=== PATIENT | female | born 1945 | race Two or more races ===

== ENCOUNTER 2017-01-05 19:04 | Emergency (ER) | payer MEDICARE, BC ==
[~2017-01-05] VITALS: Ht 157.5 cm; Wt 79.8 kg
[2017-01-05] MEDS ORDERED: SYNTHROID 125 MCG (19:26)
--- NOTE | 2017-01-05 19:33 | NUR ---
Pt ambulated to room with steady gait. Pt c/o intermittent RLQ since yesterday. Pt denies any pain at this time. Pt denies N/V/D. Pt resting in position of comfort for self. Awaiting further eval.
[2017-01-05 20:10] LABS: BASOPHILS % (AUTO) 0.4 % (0.0-2.0); EOSINOPHILS # (AUTO) 0.1 K/uL (0.0-0.7); EOSINOPHILS % (AUTO) 1.2 % (0.0-7.0); HEMATOCRIT 40.5 % (37-47); HEMOGLOBIN 13.4 G/DL (12.0-16.0); LYMPHOCYTES # (AUTO) 1.2 K/UL (0.8-4.8); MEAN CORPUSCULAR HGB CONC 33 g/dL (32.0-37.0); MEAN CORPUSCULAR VOLUME 84.5 FL (81.0-99.0); MONOCYTES # (AUTO) 0.6 K/UL (0.1-1.30); MONOCYTES % (AUTO) 6.3 % (0.0-11.0); NEUTROPHILS # (AUTO) 7.7 K/UL (1.8-8.9); NEUTROPHILS % (AUTO) 79.1 % (38.5-71.5); PLATELET COUNT (AUTO) 173 K/UL (150-450); WHITE BLOOD COUNT (AUTO) 9.6 K/UL (4.0-11.2)
[2017-01-05 20:11] LABS: *BILIRUBIN,URIN NEGATIVE (NEGATIVE); *BLOOD, URINE NEGATIVE (NEGATIVE); *CLARITY,URINE SLIGHTLY CLOUDY (CLEAR); *COLOR,URINE YELLOW (YELLOW); *KETONES,URINE NEGATIVE (NEGATIVE); *PROTEIN,URINE NEGATIVE (NEGATIVE); *UROBILINOGEN,URINE 0.2 E.U./dl (NORMAL); LEUKOCYTE ESTERASE ,URINE NEGATIVE (NEGATIVE); NITRITE, URINE NEGATIVE (NEGATIVE); UGLUCOSE NEGATIVE (NEGATIVE)
[2017-01-05 20:21] LABS: CREATININE 1.4 mg/dL (0.6-1.3); POTASSIUM 3.9 mmol/L (3.5-5.1)
[2017-01-05 20:22] LABS: BACTERIA,URINE NONE SEEN /HPF (NONE SEEN); RBC,URINE 0-3 /HPF (0-3); SQUAMOUS EPITHELIAL CELL,UR NONE SEEN /HPF (NONE SEEN); WBC,URINE 0-3 /HPF (0-3)
[2017-01-05 20:26] LABS: BILIRUBIN,DIRECT 0.1 mg/dL (0.0-0.2); BILIRUBIN,TOTAL 0.3 mg/dL (0.2-1.0); TOTAL PROTEIN, SERUM 7.6 g/dL (6.4-8.2)
[2017-01-05] MEDS: MORPHINE SULFATE 4 MG/1 ML DISP.SYRIN IV ONE (20:30)
[2017-01-05] MEDS: ONDANSETRON IV *ER 4 MG/2 ML VIAL IV ONE (20:30)
--- NOTE | 2017-01-05 20:30 | NUR ---
Pt returned from CT via [employer]. Pt c/o pain. notified. Pt medicated for discomfort, will monitor for effects of medication. Pt resting in position of comfort for self.
[2017-01-05] MEDS ORDERED: ONDANSETRON 4 MG/2 ML VIAL ONE (20:36)
[2017-01-05] MEDS ORDERED: MORPHINE SULFATE 4 MG/1 ML DISP.SYRIN ONE (20:36)
[2017-01-05] MEDS: TAMSULOSIN HCL 0.4 MG CAP.SR.24H PO ONE (21:52)
[2017-01-05] MEDS: IBUPROFEN 600 MG TABLET PO ONE (21:53)
[2017-01-05] MEDS ORDERED: IBUPROFEN 600 MG TABLET ONE (22:01)
--- NOTE | 2017-01-05 22:01 | NUR ---
Pt sts she is feeling better. Pt stable for discharge per ME. IV dc'd, catheter intact. Drsg applied. No problems noted to site. Pt given ACI. Pt verbalized understanding of dc instructions. 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
[2017-01-05] MEDS ORDERED: TAMSULOSIN HCL 0.4 MG CAP.SR.24H ONE (22:02)
[2017-01-05 22:04] VITALS: BP 122/74
== END 2017-01-05 22:04 | disposition home or self-care (01) ==
LOC: ER 19:05
DX: N20.1 Calculus of ureter (principal); R10.9 Unspecified abdominal pain; K59.00 Constipation, unspecified
CPT/HCPCS: 36415; 83690; 85025; A4663; J2270; J2405